=== PATIENT | female | born 1975 | race Caucasian/White ===

== ENCOUNTER → 2020-07-04 | Outpatient (CLI) | payer BC ==
--- NOTE | 2020-07-04 16:52 | Diagnostic Imaging Report ---
PROCEDURE: CT abdomen and pelvis without contrast. TECHNIQUE: Multiple contiguous axial images were obtained through the abdomen and pelvis without the use of intravenous contrast. Auto Exposure Controls were utilized during the CT exam to meet ALARA standards for radiation dose reduction. INDICATION: Microscopic hematuria, left flank pain, nausea. FINDINGS: No radiopaque urinary tract calculi. There is no hydroureteronephrosis. Urinary bladder is unremarkable. There is a left adnexal cyst presumed dominant ovarian follicle at 2.7 cm. The uterus and right adnexa are normal. There is no appendicitis or diverticulitis. There is no bowel, biliary or urinary tract obstruction. The unopacified liver, gallbladder, spleen, adrenals, pancreas and kidneys are normal. IMPRESSION: 1. Likely dominant follicular cyst in the left ovary. No obstructive features, inflammatory process or acute abnormalities. 2. In particular, no hydronephrosis or opaque urinary tract stones. Dictated on workstation # [id number]
== END ==
LOC: RAD 16:45
PROVIDERS: ATTEND Urology
DX: R31.29 Other microscopic hematuria (principal); R11.0 Nausea; R10.9 Unspecified abdominal pain
CPT/HCPCS: 74176